=== PATIENT | male | born 1985 ===

== ENCOUNTER 2020-07-02 11:58 | Emergency (ER) | payer SELFPAY ==
[2020-07-02] MEDS ORDERED: FENTANYL CITRATE INJ/PF 100 MCG/2 ML AMPUL IV ONE (12:47)
--- NOTE | 2020-07-02 12:48 | RADIOLOGY REPORT (SQ) ---
EXAM DESCRIPTION: SHOULDER RIGHT 2 OR MORE VIEWS IMAGES COMPLETED DATE/TIME: 07/02/2020 12:34 pm REASON FOR STUDY: injury COMPARISON: None. NUMBER OF VIEWS: Three views. TECHNIQUE: Internal rotation, external rotation, and Y view images acquired of the right shoulder. LIMITATIONS: None. FINDINGS: MINERALIZATION: Normal. BONES: No acute fracture. No worrisome bone lesions. JOINTS: No dislocation. VISUALIZED LUNGS AND RIBS: No pneumothorax. No rib fracture. SOFT TISSUES: No radiopaque foreign body. OTHER: No other significant finding. IMPRESSION: 1. No acute osseous findings. TECHNICAL DOCUMENTATION: JOB ID: [id number] 2010 [employer]- All Rights Reserved Reading location - IP/workstation name: [email or web address]
--- NOTE | 2020-07-02 12:56 | ER Document Report ---
ED Extremity Problem, Upper - General Chief Complaint: Shoulder Injury Stated Complaint: RIGHT ARM INJURY Time Seen by Provider: 07/02/20 12:08 Primary Care Provider: ALIYAH TAYLOR MD [ACTIVE STAFF] - Follow up as needed Notes: HPI: 5-year-old male with supposedly history of 2 shoulder dislocations as well as leukemia currently in remission followed at [facility] with the last chemotherapy around 6 months ago he states he felt a little lightheaded while driving. He was having some palpitations. He states he got out of the car and almost passed out catching himself with his right arm. He believes he dislocated his right shoulder. He denies pain or injury to any other location other than his right shoulder. Patient states he has a history of atrial fibrillation since being diagnosed with leukemia. He denies any and all chest pain, calf pain or leg swelling, shortness of breath. ROS: See HPI All other review of systems reviewed and otherwise negative Reviewed vital signs and nursing note as charted by RN. PHYSICAL EXAM: CONSTITUTIONAL: Alert and oriented and responds appropriately to questions. Well-appearing; well-nourished HEAD: Normocephalic; atraumatic EYES: PERRL; full extraocular range of motion ENT: Normal nose; no rhinorrhea; moist mucous membranes; pharynx without lesions noted NECK: Supple without meningismus; non-tender; no cervical lymphadenopathy, no masses CARD: Regular rate and rhythm; no murmurs; symmetric distal pulses RESP: Normal chest excursion without splinting or tachypnea; breath sounds clear and equal bilaterally; no clavicle or sternal tenderness. Clear breath sounds bilaterally ABD/GI: Normal bowel sounds; non-distended; soft, non-tender; no palpable organomegaly or masses BACK: The back appears normal and is non-tender to palpation EXT: Slight decreased ROM in the right arm SKIN: No acute lesions noted NEURO: CN 2-12 intact; right arm is internally rotated but slightly adducted PSYCH: The patient's mood and manner are appropriate. Grooming and personal hygiene are appropriate. - Related Data Allergies/Adverse Reactions: Penicillins Allergy (Verified 07/02/20 12:02) Past Medical History - Social History Smoking Status: Unknown if Ever Smoked Family History: Reviewed & Not Pertinent Patient has homicidal ideation: No Physical Exam - Vital signs Vitals: Temp 98.0 F 07/02/20 12:11 Course - Re-evaluation Re-evalutation: Given the above history and physical with the patient's past medical history we will obtain an EKG as well as electrolytes and hemoglobin level and an x-ray of the right shoulder. I would like to evaluate for the possibility of a dysrhythmia, anemia, or shoulder fracture/dislocation. EKG shows a heart rate of 83, normal sinus rhythm, normal axis, no ST elevation or depression. 07/02/20 14:07 X-ray of the shoulder as recorded. Hemoglobin as recorded. Patient's pain is improved. Still no pain to new locations. Patient will be discharged home with strict return precautions and follow-up with the primary care provider. - Vital Signs Vital signs: Temp Pulse Resp BP Pulse Ox 98 F 07/02/20 12:16 - Laboratory Result Diagrams: 07/02/20 12:01 07/02/20 12:01 Laboratory results interpreted by me: 07/02/20 12:01 RBC 4.09 L Hgb 13.1 L Discharge - Discharge Clinical Impression: Lightheadedness Contusion of right shoulder Qualifiers: Encounter type: initial encounter Qualified Code(s): S40.011A - Contusion of right shoulder, initial encounter Condition: Good Disposition: HOME, SELF-CARE Additional Instructions: Come back immediately for any increased pain, change in location or quality of pain, weakness or numbness, repeat lightheadedness, or any other acute problems. Please follow-up with the primary care physician and orthopedics as discussed. Prescriptions: Hydrocodone/Acetaminophen [Hymera 5-325 mg Tablet] 1 tab PO Q8 #10 tablet Referrals: ALIYAH TAYLOR MD [ACTIVE STAFF] - Follow up as needed
[2020-07-02 12:58] LABS: ABSOLUTE EOSINOPHILS # (AUTO) 0.2 10^3/uL (0.0-0.6); ABSOLUTE LYMPHOCYTES (AUTO) 1.1 10^3/uL (0.5-4.7); ABSOLUTE MONOCYTES (AUTO) 0.4 10^3/uL (0.1-1.4); ABSOLUTE NEUT (AUTO) 5.4 10^3/uL (1.7-8.2); BASOPHILS % (AUTO) 0.6 % (0-2); EOSINOPHILS % (AUTO) 2.2 % (0-6); HEMOGLOBIN 13.1 g/dL (13.5-17.0); LYMPHOCYTES % (AUTO) 15.9 % (13-45); MEAN CORPUSCULAR HEMOGLOBIN 31.9 pg (27.0-33.4); MEAN CORPUSCULAR HGB CONC 34.4 g/dL (32.0-36.0); MEAN CORPUSCULAR VOLUME 93 fl (80-97); MONOCYTES % (AUTO) 5.8 % (3-13); PLATELET COUNT 208 10^3/uL (150-450); RED BLOOD COUNT 4.09 10^6/uL (4.35-5.55); RED CELL DISTRIBUTION WIDTH 13.7 % (11.5-14.0); SEGMENTED NEUTROPHILS % (AUTO) 75.5 % (42-78); TOTAL CELLS COUNTED % (AUTO) 100 %; WHITE BLOOD COUNT 7.1 10^3/uL (4.0-10.5)
[2020-07-02 13:11] LABS: ANION GAP 8 (5-19); BLOOD UREA NITROGEN 8 mg/dL (7-20); CALCIUM 9.1 mg/dL (8.4-10.2); CARBON DIOXIDE 24 mmol/L (22-30); CHLORIDE 107 mmol/L (98-107); GLUCOSE 93 mg/dL (75-110); POTASSIUM 4.2 mmol/L (3.6-5.0)
[2020-07-02 14:27] VITALS: BP 132/92
--- NOTE | 2020-07-03 09:40 | EKG REPORT ---
SEVERITY:- ABNORMAL ECG - SINUS RHYTHM NONSPECIFIC INTRAVENTRICULAR CONDUCTION DELAY : Confirmed by: Chandrakant Roman MD 03-Jul-2020 09:39:07
== END 2020-07-02 14:26 | disposition home or self-care (01) ==
LOC: ER 11:58
DX: S40.011A Contusion of right shoulder, initial encounter (principal); R42 Dizziness and giddiness; W18.30XA Fall on same level, unspecified, initial encounter; C95.91 Leukemia, unspecified, in remission
CPT/HCPCS: 93005; 99285; 96374; 36415; 85025; 80048; 73030; 93010; J3010